=== PATIENT | male | born 2000 | race Caucasian/White ===

== ENCOUNTER 2019-04-29 16:55 | Emergency (ER) | payer SELFPAY ==
--- NOTE | 2019-04-29 17:48 | EDPHYS ---
Physician Documentation [facility] Name: Neal Colindres Age: 18 yrs Sex: Male : 2000 Arrival Date: 04/29/2019 Time: 17:00 Bed 24 Private MD: ED Physician Edwar Suazo HPI: 04/29 22:31 This 18 yrs old Male presents to ER via Ambulatory with complaints of Back kb Pain. 22:31 The patient presents with pain that is chronic, with no known mechanism of injury. The kb symptoms are located in the entire back. Onset: The symptoms/episode began/occurred "when I was 4". The pain does not radiate. Associated signs and symptoms: The patient has no apparent associated signs or symptoms. The problem was sustained from a chronic condition. Modifying factors: The patient symptoms are alleviated by nothing, the patient symptoms are aggravated by any movement. Severity of symptoms: At their worst the symptoms were moderate, in the emergency department the symptoms are unchanged. The patient has experienced similar episodes in the past, chronically. The patient has not recently seen a physician. Pt reports back pain since he was 4 years old. States he has been working nights for the past 4 days and his back is hurting more. Denies injury. Historical: - Allergies: 17:02 No Known Allergies; hj - PMHx: 17:02 chronic back pain; hj - PSHx: 17:02 None; hj ROS: 22:30 Constitutional: Negative for fever, chills, and weight loss, ENT: Negative for injury, kb pain, and discharge, Neck: Negative for injury, pain, and swelling, Cardiovascular: Negative for chest pain, palpitations, and edema, Respiratory: Negative for shortness of breath, cough, wheezing, and pleuritic chest pain, Abdomen/GI: Negative for abdominal pain, nausea, vomiting, diarrhea, and constipation, : Negative for injury, bleeding, discharge, and swelling, MS/Extremity: Negative for injury and deformity, Skin: Negative for injury, rash, and discoloration, Neuro: Negative for headache, weakness, numbness, tingling, and seizure. 22:30 Back: Positive for pain at rest, pain with movement, of the back. Exam: 22:30 Constitutional: This is a well developed, well nourished patient who is awake, alert, kb and in no acute distress. Head/Face: Normocephalic, atraumatic. ENT: Nares patent. No nasal discharge, no septal abnormalities noted. Tympanic membranes are normal and external auditory canals are clear. Oropharynx with no redness, swelling, or masses, exudates, or evidence of obstruction, uvula midline. Mucous membranes moist. Neck: Trachea midline, no thyromegaly or masses palpated, and no cervical lymphadenopathy. Supple, full range of motion without nuchal rigidity, or vertebral point tenderness. No Meningismus. Chest/axilla: Normal chest wall appearance and motion. Nontender with no deformity. No lesions are appreciated. Cardiovascular: Regular rate and rhythm with a normal S1 and S2. No gallops, murmurs, or rubs. Normal PMI, no JVD. No pulse deficits. Respiratory: Lungs have equal breath sounds bilaterally, clear to auscultation and percussion. No rales, rhonchi or wheezes noted. No increased work of breathing, no retractions or nasal flaring. Abdomen/GI: Soft, non-tender, with normal bowel sounds. No distension or tympany. No guarding or rebound. No evidence of tenderness throughout. Back: No spinal tenderness. No costovertebral tenderness. Full range of motion. Skin: Warm, dry with normal turgor. Normal color with no rashes, no lesions, and no evidence of cellulitis. MS/ Extremity: Pulses equal, no cyanosis. Neurovascular intact. Full, normal range of motion. Neuro: Awake and alert, GCS 15, oriented to person, place, time, and situation. Cranial nerves II-XII grossly intact. Motor strength 5/5 in all extremities. Sensory grossly intact. Cerebellar exam normal. Normal gait. Vital Signs: 17:02 BP 143 / 59; Pulse 65; Resp 18; Temp 97.5(TE); Pulse Ox 100% on R/A; Weight 111.13 kg; hj Height 6 ft. 0 in. (182.88 cm); Pain 10/10; 17:02 Body Mass Index 33.23 (111.13 kg, 182.88 cm) MDM: 17:39 Patient medically screened. kb 22:30 Data reviewed: vital signs, nurses notes. Data interpreted: Pulse oximetry: on room air kb is 100 %. Interpretation: normal. Counseling: I had a detailed discussion with the patient and/or guardian regarding: the historical points, exam findings, and any diagnostic results supporting the discharge/admit diagnosis, the need for outpatient follow up, a family practitioner, to return to the emergency department if symptoms worsen or persist or if there are any questions or concerns that arise at home. Administered Medications: No medications were administered Disposition: 04/30 06:56 Co-signature as Attending Physician, Edwar Suazo MD. rn Disposition: 04/29/19 17:47 Discharged to Home. Impression: Chronic pain, not elsewhere classified - back pain. - Condition is Stable. - Discharge Instructions: Chronic Back Pain, Back Pain, Adult, [id number]. - Prescriptions for Cyclobenzaprine 10 mg Oral Tablet - take 1 tablet by ORAL route every 8 hours As needed; 21 tablet. Diclofenac Sodium 75 mg Oral Tablet, Delayed Release (E.C.) - take 1 tablet by ORAL route 2 times per day As needed; 30 tablet. - Medication Reconciliation Form, Thank You Letter, Antibiotic Education, Prescription Opioid Use form. - Work release form (04/29/19 17:52). kb - Follow up: Emergency Department; When: As needed; Reason: Worsening of condition. Follow up: Private Physician; When: 2 - 3 days; Reason: Recheck today's complaints, Continuance of care, Re-evaluation by your physician. Signatures: Bella Aviles FNP-C FNP-Shannan Monge RN RN aj Nieto, Roman, MD MD rn Joaquin, Henry, RN RN Corrections: (The following items were deleted from the chart) 04/29 17:50 17:47 04/29/2019 17:47 Discharged to Home. Impression: Chronic pain, not elsewhere aj classified - back pain. Condition is Stable. Forms are Medication Reconciliation Form, Thank You Letter, Antibiotic Education, Prescription Opioid Use. Follow up: Emergency Department; When: As needed; Reason: Worsening of condition. Follow up: Private Physician; When: 2 - 3 days; Reason: Recheck today's complaints, Continuance of care, Re-evaluation by your physician. kb
--- NOTE | 2019-04-29 17:48 | ER ---
Nurse's Notes [facility] Name: Neal Colindres Age: 18 yrs Sex: Male : 2000 Arrival Date: 04/29/2019 Time: 17:00 Bed 24 Private MD: Diagnosis: Chronic pain, not elsewhere classified-back pain Presentation: 04/29 17:00 Presenting complaint: Patient states: i have chronic back pain problems, i lifted 50 lb hj bag at work and after that that pain is getting worse; reports numbness and tingling in bilateral legs;. Transition of care: patient was not received from another setting of care. Onset of symptoms was April 29, 2019. Risk Assessment: Do you want to hurt yourself or someone else? Patient reports no desire to harm self or others. Initial Sepsis Screen: Does the patient meet any 2 criteria? No. Patient's initial sepsis screen is negative. Does the patient have a suspected source of infection? No. Patient's initial sepsis screen is negative. Care prior to arrival: None. 17:00 Method Of Arrival: Ambulatory 17:00 Acuity: HODAN 4 hj Historical: - Allergies: 17:02 No Known Allergies; hj - PMHx: 17:02 chronic back pain; hj - PSHx: 17:02 None; hj Screenin:49 Abuse screen: Denies threats or abuse. Denies injuries from another. Nutritional aj screening: No deficits noted. Tuberculosis screening: No symptoms or risk factors identified. Fall Risk None identified. Assessment: 17:44 General: Appears in no apparent distress. comfortable, Behavior is calm, cooperative, aj appropriate for age. Pain: Complains of pain in back. Neuro: Level of Consciousness is awake, alert, obeys commands, Oriented to person, place, time, situation, Appropriate for age. Respiratory: Airway is patent Respiratory effort is even, unlabored, Respiratory pattern is regular, symmetrical. Derm: Skin is intact, is healthy with good turgor, Skin is pink, warm \T\ dry. normal. Musculoskeletal: Reports pain in back. Vital Signs: 17:02 BP 143 / 59; Pulse 65; Resp 18; Temp 97.5(TE); Pulse Ox 100% on R/A; Weight 111.13 kg; hj Height 6 ft. 0 in. (182.88 cm); Pain 10/10; 17:02 Body Mass Index 33.23 (111.13 kg, 182.88 cm) ED Course: 17:00 Patient arrived in ED. hj 17:01 Triage completed. hj 17:02 Arm band placed on right wrist. hj 17:39 Bella Aviles FNP-C [facility]. kb 17:39 Edwar Suazo MD is Attending Physician. kb 17:40 Shannan Schneider, RN is Primary Nurse. aj 17:49 Patient has correct armband on for positive identification. aj 17:49 No provider procedures requiring assistance completed. Patient did not have IV access aj during this emergency room visit. Administered Medications: No medications were administered Outcome: 17:47 Discharge ordered by MD. kb 17:49 Discharged to home ambulatory. aj 17:49 Condition: good 17:49 Discharge instructions given to patient, Instructed on discharge instructions, follow up and referral plans. medication usage, Demonstrated understanding of instructions, follow-up care, medications, Prescriptions given X 2. 17:50 Patient left the ED. aj Signatures: Bella Aviles FNP-C FNP-Shannan Monge, RN RN Glynn Stewart, RN RN Corrections: (The following items were deleted from the chart) 17:03 17:02 Pulse 65bpm; Resp 18bpm; Pulse Ox 100% RA; Temp 97.5F Temporal; 111.13 kg; Height hj 6 ft. 0 in.; BMI: 33.2; Pain 10/10; hj 17:04 17:02 Pulse 65bpm; Resp 18bpm; Pulse Ox 100% RA; Temp 97.5F Temporal; 111.13 kg; Height hj 6 ft. 0 in.; BMI: 33.2; Pain 10/10; hj
== END 2019-04-29 17:50 | disposition home or self-care (01) ==
LOC: ER 16:55
DX: G89.29 Other chronic pain (principal); M54.9 Dorsalgia, unspecified
CPT/HCPCS: 99282